=== PATIENT | male | born 1960 | race Caucasian/White ===

== ENCOUNTER 2017-08-25 21:40 | Emergency (ER) | payer OTHER ==
[~2017-08-25] VITALS: Ht 182.9 cm; Wt 81.6 kg
[2017-08-25 21:42] VITALS: BP_SYST 158
--- NOTE | 2017-08-25 21:42 | NUR ---
Placed in room 8 . Placed on quality assurance monitor final, blood pressure machine and pulse oximeter. To gown for exam. Side rails up. Report given to Samina HERNÁNDEZ.
--- NOTE | 2017-08-25 21:49 | NUR ---
Pt brought by self, A&Ox4, pt presents to ER with edema on R calf and ankle , no discoloration noted, denies pain, pt has weakness on R side of body due to previous stroke, VS WNL, respirations even and unlabored, pt able to ambulate.
--- NOTE | 2017-08-25 21:50 | NUR ---
Dr Stock at bedside examining patient
--- NOTE | 2017-08-25 22:35 | NUR ---
Marco Antonio garcia in [facility] - 08/25/17 at 2259 by [email or web address] Pt off the unit for ultrasounf
--- NOTE | 2017-08-25 22:35 | NUR ---
Pt off the unit for ultrasound
--- NOTE | 2017-08-25 23:25 | NUR ---
Pt on stable condition, report given to Jose Enrique HERNÁNDEZ
[2017-08-25 23:52] VITALS: BP_SYST 158
--- NOTE | 2017-08-25 23:52 | NUR ---
Patient given written and verbal discharge instructions and verbalizes understanding. ER MD discussed with patient the results and treatment provided. Patient in stable condition. ID arm band removed. Patient educated on pain management and to follow up with PMD. Pain Scale 0/10. Opportunity for questions provided and answered. Medication side effect fact sheet provided.
== END 2017-08-25 23:52 | disposition home or self-care (01) ==
LOC: SED 21:40
DX: R60.0 Localized edema (principal); E78.00 Pure hypercholesterolemia, unspecified; F17.200 Nicotine dependence, unspecified, uncomplicated; E11.9 Type 2 diabetes mellitus without complications; I10 Essential (primary) hypertension; Z86.73 Personal history of transient ischemic attack (TIA), and cerebral infarction without residual deficits
CPT/HCPCS: 93971; 99284